=== PATIENT | male | born 1990 ===

== ENCOUNTER → 2020-10-19 | Emergency (ER) | payer OTHER ==
[~2020-10-19] VITALS: Ht 172.7 cm; Wt 81.6 kg
[~2020-10-19] MED LIST: CEPHALEXIN500 M1 PO; INTESTINEX680 M1 PO; POLYCIN EYE OI3.5 GM OP
== END | disposition home or self-care (01) ==
LOC: ER 10:04
DX: H00.022 Hordeolum internum right lower eyelid (principal)